=== PATIENT | male | born 1995 | race Caucasian/White ===

== ENCOUNTER 2022-05-19 15:18 | Emergency (ER) | payer SELFPAY ==
[~2022-05-19] VITALS: Ht 182.9 cm; Wt 63.5 kg
--- NOTE | 2022-05-19 15:20 | NUR ---
Pt brought by self, A&Ox4, pt presents to ER with abdominal pain and nausea, skin pink and warm, cap refill <3, VSS, respriations even and unlabored, will cont to monitor.
--- NOTE | 2022-05-19 15:35 | NUR ---
CALL TO TRIAGE, NO ANSWER
--- NOTE | 2022-05-19 16:00 | NUR ---
Dr Jhaveri evaluating patient in the triage room
[2022-05-19 17:32] LABS: BASOPHILS % (AUTO) 0.4 % (0.0-2.0); EOSINOPHILS # (AUTO) 0.1 K/uL (0.0-0.4); EOSINOPHILS % (AUTO) 2.3 % (0.0-4.0); HEMATOCRIT 50.3 % (36-54); HEMOGLOBIN 16.7 g/dL (14.0-18.0); LYMPHOCYTES # (AUTO) 1.8 K/uL (1.0-5.5); LYMPHOCYTES % (AUTO) 31.4 % (20.5-51.5); MEAN CORPUSCULAR HEMOGLOBIN 29 pg (27-31); MEAN CORPUSCULAR HGB CONC 33 % (32-36); MEAN CORPUSCULAR VOLUME 88 fL (79.0-98.0); MONOCYTES # (AUTO) 0.5 K/uL (0.0-1.0); MONOCYTES % (AUTO) 7.8 % (1.7-9.3); NEUTROPHILS # (AUTO) 3.4 K/uL (1.8-7.7); NEUTROPHILS % (AUTO) 58.1 % (40.0-70.0); PLATELET COUNT (AUTO) 194 K/uL (130-430); RED BLOOD CELL COUNT(AUTO) 5.73 MIL/uL (4.2-6.2); RED CELL DISTRIBUTION WIDTH 13.5 % (9.0-15.0); WHITE BLOOD COUNT (AUTO) 5.9 K/uL (4.8-10.8)
[2022-05-19 17:47] VITALS: BP_SYST 133
[2022-05-19 17:49] LABS: ANION GAP 10 (5-15); CALCIUM 9.2 mg/dL (8.4-11.0); CHLORIDE 105 mmol/L (98-107); CREATININE 1.12 mg/dL (0.55-1.30); GLUCOSE 88 mg/dL (70-99); UREA NITROGEN, BLOOD 16 mg/dL (8-21)
[2022-05-19 17:52] LABS: GFR AFRICAN AMERICAN 104 mL/min (>90)
[2022-05-19 17:55] LABS: ALANINE AMINOTRANSFERASE 74 U/L (12-78); ALBUMIN 4.4 g/dL (3.4-4.8); AMYLASE 72 U/L (0-100); ASPARTATE AMINOTRANSFERASE 119 U/L (10-37); C-REACTIVE PROTEIN QUANT < 0.2 mg/dL (0-0.5); LIPASE 71 U/L (73-393)
[2022-05-19 17:59] LABS: ACETONE, SERUM NEGATIVE (NEGATIVE)
[2022-05-19 18:44] LABS: BILIRUBIN,URINE NEGATIVE (NEGATIVE); BLOOD, URINE NEGATIVE (NEGATIVE); CLARITY/URINE CLEAR (CLEAR); COLOR,URINE YELLOW (YELLOW); GLUCOSE,URINE NEGATIVE (NEGATIVE); KETONES,URINE TRACE (NEGATIVE); LEUKOCYTE ESTERASE ,URINE NEGATIVE (NEGATIVE); NITRITE, URINE NEGATIVE (NEGATIVE); PROTEIN URINE NEGATIVE (NEGATIVE)
[2022-05-19 18:48] LABS: UROBILINOGEN,URINE >=8 (0.2-1.0)
[2022-05-19] MEDS ORDERED: OMEP20CA15 PO (19:14)
[2022-05-19] MEDS ORDERED: REGL10 PO (19:14)
--- NOTE | 2022-05-19 19:54 | NUR ---
Patient given written and verbal discharge instructions and verbalizes understanding. ER MD discussed with patient the results and treatment provided. Patient in stable condition. ID arm band removed. Rx of Omeprazole and Reglan syrup given. Patient educated on pain management and to follow up with PMD. Pain Scale 2/10. Opportunity for questions provided and answered. Medication side effect fact sheet provided.
[2022-05-19 19:55] VITALS: BP_SYST 133
== END 2022-05-19 19:55 | disposition home or self-care (01) ==
LOC: SED 15:18
DX: R10.9 Unspecified abdominal pain (principal); R11.2 Nausea with vomiting, unspecified; F12.90 Cannabis use, unspecified, uncomplicated; Z79.899 Other long term (current) drug therapy
CPT/HCPCS: 36415; 76376; 80053; 81003; 82009; 82150; 83605; 83690; 85025; 86140; 99284